=== PATIENT | female | born 1960 | race African-American/Black ===

== ENCOUNTER 2020-08-12 13:40 | Inpatient (IN) | payer OTHER ==
[2020-08-12 15:02] VITALS: BMI 21.9
[2020-08-12] MEDS ORDERED: METHOCARBAMOL 500 MG TABLET PO PRN (15:03)
[2020-08-12] MEDS ORDERED: ONDANSETRON *ODT* 4 MG TABLET SL PRN (15:03)
[2020-08-12] MEDS ORDERED: IBUPROFEN 400 MG TABLET (FP) PO PRN (15:03)
[2020-08-12] MEDS ORDERED: cloNIDine HCL 0.1 MG TABLET PO PRN (15:03)
[2020-08-12] MEDS ORDERED: methaDONE HCL 10 MG TABLET (FOR DETOX USE ONLY) PO ONE (15:03)
[2020-08-12] MEDS ORDERED: MENTHOL/PHENOL 1 EACH UD MM PRN (15:03)
[2020-08-12] MEDS ORDERED: MAGNESIUM HYDROX 2400MG/30ML ORAL SUSPENSION 30 ML CUP PO PRN (15:03)
[2020-08-12] MEDS ORDERED: NICOTINE POLACRILEX 2 MG GUM BUC PRN (15:03)
[2020-08-12] MEDS ORDERED: MAGNESIUM CITRATE 300 ML BOTTLE PO PRN (15:03)
[2020-08-12] MEDS ORDERED: ACETAMINOPHEN 325 MG TABLET (FP) PO PRN (15:03)
[2020-08-12] MEDS: hydrOXYzine PAMOATE 25 MG CAPSULE (FP) PO SCH ×2 (17:52→22:27)
[2020-08-12] MEDS: metFORMIN HCL 500 MG TABLET (FP) PO SCH (17:52)
[2020-08-12] MEDS: NICOTINE 21 MG/24 HOURS TOPICAL PATCH TD SCH (17:56)
[2020-08-12] MEDS: PRENATAL VITAMINS W/ FOLIC ACID TABLET (FP) PO SCH (17:56)
[2020-08-12] MEDS: THIAMINE HCL 100 MG TABLET (FP) PO SCH (22:26)
[2020-08-12] MEDS: ATORVASTATIN CA 20 MG TABLET (FP) PO SCH (22:26)
[2020-08-12] MEDS: MELATONIN 5 MG TABLETS PO SCH (22:26)
[2020-08-13] MEDS: hydrOXYzine PAMOATE 25 MG CAPSULE (FP) PO SCH ×5 (06:13→22:32)
[2020-08-13] MEDS: metFORMIN HCL 500 MG TABLET (FP) PO SCH ×2 (06:13→17:56)
[2020-08-13] MEDS ORDERED: methaDONE HCL 10 MG TABLET (FOR DETOX USE ONLY) ONE (09:30)
[2020-08-13] MEDS: amLODIPine BESYLATE 10 MG TABLET (FP) PO SCH (10:26)
[2020-08-13] MEDS: NICOTINE 21 MG/24 HOURS TOPICAL PATCH TD SCH (10:26)
[2020-08-13] MEDS: LISINOPRIL 10 MG TABLET PO SCH (10:27)
[2020-08-13] MEDS: PRENATAL VITAMINS W/ FOLIC ACID TABLET (FP) PO SCH (10:27)
[2020-08-13 13:14] LABS: BLOOD UREA NITROGEN 10.1 mg/dL (7-18); CALCIUM 8.9 mg/dL (8.5-10.1); HEMATOCRIT 32.6 % (32.4-45.2); HEMOGLOBIN 10.6 GM/dL (10.7-15.3); MCHC 32.4 g/dl (32.0-36.0); MEAN CELL VOLUME 83.3 fl (80-96); MEAN PLT VOLUME 10.1 fl (7.5-11.1); PLATELET COUNT 146 10^3/uL (134-434); RBC 3.91 M/mm3 (3.60-5.2); RDW 13.1 % (11.6-15.6); WHITE BLOOD COUNT 4.8 K/mm3 (4.0-10.0)
[2020-08-13 13:15] LABS: ALBUMIN 3.3 g/dl (3.4-5.0)
[2020-08-13 13:18] LABS: CREATININE 0.6 mg/dL (0.55-1.3)
[2020-08-13 13:19] LABS: BILIRUBIN,TOTAL 0.5 mg/dL (0.2-1)
[2020-08-13 13:20] LABS: TOT PROT 6.5 g/dl (6.4-8.2)
[2020-08-13] MEDS: MELATONIN 5 MG TABLETS PO SCH (22:32)
[2020-08-13] MEDS: ATORVASTATIN CA 20 MG TABLET (FP) PO SCH (22:32)
[2020-08-13] MEDS: THIAMINE HCL 100 MG TABLET (FP) PO SCH (22:32)
[2020-08-14] MEDS: metFORMIN HCL 500 MG TABLET (FP) PO SCH ×2 (06:29→16:30)
[2020-08-14] MEDS: hydrOXYzine PAMOATE 25 MG CAPSULE (FP) PO SCH ×5 (06:29→22:31)
[2020-08-14] MEDS ORDERED: methaDONE HCL 10 MG TABLET (FOR DETOX USE ONLY) PO ONE (10:00)
[2020-08-14] MEDS: LISINOPRIL 10 MG TABLET PO SCH (10:43)
[2020-08-14] MEDS: amLODIPine BESYLATE 10 MG TABLET (FP) PO SCH (10:43)
[2020-08-14] MEDS: PRENATAL VITAMINS W/ FOLIC ACID TABLET (FP) PO SCH (10:43)
[2020-08-14] MEDS: NICOTINE 21 MG/24 HOURS TOPICAL PATCH TD SCH (10:47)
[2020-08-14] MEDS: ATORVASTATIN CA 20 MG TABLET (FP) PO SCH (22:31)
[2020-08-14] MEDS: MELATONIN 5 MG TABLETS PO SCH (22:32)
[2020-08-14] MEDS: THIAMINE HCL 100 MG TABLET (FP) PO SCH (22:32)
[2020-08-15] MEDS: hydrOXYzine PAMOATE 25 MG CAPSULE (FP) PO SCH ×5 (06:17→22:39)
[2020-08-15] MEDS: metFORMIN HCL 500 MG TABLET (FP) PO SCH ×2 (06:17→17:43)
[2020-08-15] MEDS ORDERED: methaDONE HCL 10 MG TABLET (FOR DETOX USE ONLY) ONE (09:32)
[2020-08-15] MEDS: PRENATAL VITAMINS W/ FOLIC ACID TABLET (FP) PO SCH (10:37)
[2020-08-15] MEDS: NICOTINE 21 MG/24 HOURS TOPICAL PATCH TD SCH (10:37)
[2020-08-15] MEDS: amLODIPine BESYLATE 10 MG TABLET (FP) PO SCH (10:38)
[2020-08-15] MEDS: LISINOPRIL 10 MG TABLET PO SCH (10:38)
[2020-08-15] MEDS ORDERED: INSULIN (NOVOLOG) ASPART 100 UNITS/ML 10ML VIAL ONE (17:23)
[2020-08-15] MEDS: INSULIN SLIDING SCALE (NOVOLOG) 1 VIAL SQ SCH (17:43)
[2020-08-15] MEDS: MELATONIN 5 MG TABLETS PO SCH (22:39)
[2020-08-15] MEDS: THIAMINE HCL 100 MG TABLET (FP) PO SCH (22:39)
[2020-08-15] MEDS: ATORVASTATIN CA 20 MG TABLET (FP) PO SCH (22:39)
[2020-08-16] MEDS: metFORMIN HCL 500 MG TABLET (FP) PO SCH ×2 (06:00→17:43)
[2020-08-16] MEDS: hydrOXYzine PAMOATE 25 MG CAPSULE (FP) PO SCH ×5 (06:00→22:45)
[2020-08-16] MEDS: INSULIN SLIDING SCALE (NOVOLOG) 1 VIAL SQ SCH ×2 (06:01→18:24)
[2020-08-16] MEDS ORDERED: methaDONE HCL 10 MG TABLET (FOR DETOX USE ONLY) PO ONE (10:00)
[2020-08-16] MEDS: amLODIPine BESYLATE 10 MG TABLET (FP) PO SCH (10:17)
[2020-08-16] MEDS: PRENATAL VITAMINS W/ FOLIC ACID TABLET (FP) PO SCH (10:17)
[2020-08-16] MEDS: LISINOPRIL 10 MG TABLET PO SCH (10:17)
[2020-08-16] MEDS: NICOTINE 21 MG/24 HOURS TOPICAL PATCH TD SCH (10:18)
[2020-08-16] MEDS: ATORVASTATIN CA 20 MG TABLET (FP) PO SCH (22:45)
[2020-08-16] MEDS: MELATONIN 5 MG TABLETS PO SCH (22:45)
[2020-08-16] MEDS: THIAMINE HCL 100 MG TABLET (FP) PO SCH (22:45)
[2020-08-17] MEDS: hydrOXYzine PAMOATE 25 MG CAPSULE (FP) PO SCH ×5 (06:28→21:27)
[2020-08-17] MEDS: metFORMIN HCL 500 MG TABLET (FP) PO SCH ×2 (06:28→16:57)
[2020-08-17] MEDS: INSULIN SLIDING SCALE (NOVOLOG) 1 VIAL SQ SCH ×2 (08:09→16:57)
[2020-08-17] MEDS: PRENATAL VITAMINS W/ FOLIC ACID TABLET (FP) PO SCH (10:20)
[2020-08-17] MEDS: amLODIPine BESYLATE 10 MG TABLET (FP) PO SCH (10:21)
[2020-08-17] MEDS: NICOTINE 21 MG/24 HOURS TOPICAL PATCH TD SCH (10:21)
[2020-08-17] MEDS: LISINOPRIL 10 MG TABLET PO SCH (10:21)
[2020-08-17] MEDS ORDERED: INSULIN (NOVOLOG) ASPART 100 UNITS/ML 10ML VIAL ONE (16:56)
[2020-08-17] MEDS: ATORVASTATIN CA 20 MG TABLET (FP) PO SCH (21:26)
[2020-08-17] MEDS: THIAMINE HCL 100 MG TABLET (FP) PO SCH (21:26)
[2020-08-17] MEDS: MELATONIN 5 MG TABLETS PO SCH (21:27)
[2020-08-18] MEDS: hydrOXYzine PAMOATE 25 MG CAPSULE (FP) PO SCH ×3 (06:43→14:09)
[2020-08-18] MEDS: metFORMIN HCL 500 MG TABLET (FP) PO SCH ×2 (06:43→17:09)
[2020-08-18] MEDS: INSULIN SLIDING SCALE (NOVOLOG) 1 VIAL SQ SCH ×2 (06:43→17:09)
[2020-08-18] MEDS: LISINOPRIL 10 MG TABLET PO SCH (10:05)
[2020-08-18] MEDS: amLODIPine BESYLATE 10 MG TABLET (FP) PO SCH (10:05)
[2020-08-18] MEDS: PRENATAL VITAMINS W/ FOLIC ACID TABLET (FP) PO SCH (10:05)
[2020-08-18] MEDS: NICOTINE 21 MG/24 HOURS TOPICAL PATCH TD SCH (10:05)
[2020-08-18] MEDS: THIAMINE HCL 100 MG TABLET (FP) PO SCH (22:10)
[2020-08-18] MEDS: MELATONIN 5 MG TABLETS PO SCH (22:10)
[2020-08-18] MEDS: ATORVASTATIN CA 20 MG TABLET (FP) PO SCH (22:10)
[2020-08-19] MEDS: metFORMIN HCL 500 MG TABLET (FP) PO SCH ×2 (06:20→16:46)
[2020-08-19] MEDS ORDERED: INSULIN (NOVOLOG) ASPART 100 UNITS/ML 10ML VIAL ONE (07:35)
[2020-08-19] MEDS: INSULIN SLIDING SCALE (NOVOLOG) 1 VIAL SQ SCH ×2 (07:40→16:46)
[2020-08-19] MEDS ORDERED: valACYclovir HCL 500 MG TABLET (FP) PO ONE (10:55)
[2020-08-19] MEDS: PRENATAL VITAMINS W/ FOLIC ACID TABLET (FP) PO SCH (11:05)
[2020-08-19] MEDS: NICOTINE 21 MG/24 HOURS TOPICAL PATCH TD SCH (11:05)
[2020-08-19] MEDS: amLODIPine BESYLATE 10 MG TABLET (FP) PO SCH (11:05)
[2020-08-19] MEDS: LISINOPRIL 10 MG TABLET PO SCH (11:05)
[2020-08-19] MEDS: ATORVASTATIN CA 20 MG TABLET (FP) PO SCH (21:17)
[2020-08-19] MEDS: THIAMINE HCL 100 MG TABLET (FP) PO SCH (21:17)
[2020-08-19] MEDS: MELATONIN 5 MG TABLETS PO SCH (21:17)
[2020-08-19] MEDS: valACYclovir HCL 500 MG TABLET (FP) PO SCH (21:18)
[2020-08-19] MEDS: hydrOXYzine PAMOATE 25 MG CAPSULE (FP) PO PRN (21:18)
[2020-08-19] MEDS: METHOCARBAMOL 500 MG TABLET PO PRN (21:18)
[2020-08-20] MEDS: metFORMIN HCL 500 MG TABLET (FP) PO SCH ×2 (06:36→16:54)
[2020-08-20] MEDS: INSULIN SLIDING SCALE (NOVOLOG) 1 VIAL SQ SCH ×2 (08:09→16:52)
[2020-08-20] MEDS: NICOTINE 21 MG/24 HOURS TOPICAL PATCH TD SCH (10:53)
[2020-08-20] MEDS: LISINOPRIL 10 MG TABLET PO SCH (10:54)
[2020-08-20] MEDS: amLODIPine BESYLATE 10 MG TABLET (FP) PO SCH (10:54)
[2020-08-20] MEDS: PRENATAL VITAMINS W/ FOLIC ACID TABLET (FP) PO SCH (10:54)
[2020-08-20] MEDS: valACYclovir HCL 500 MG TABLET (FP) PO SCH ×2 (10:54→21:23)
[2020-08-20] MEDS: hydrOXYzine PAMOATE 25 MG CAPSULE (FP) PO PRN (21:23)
[2020-08-20] MEDS: MELATONIN 5 MG TABLETS PO SCH (21:23)
[2020-08-20] MEDS: ATORVASTATIN CA 20 MG TABLET (FP) PO SCH (21:23)
[2020-08-20] MEDS: THIAMINE HCL 100 MG TABLET (FP) PO SCH (21:23)
[2020-08-21] MEDS: metFORMIN HCL 500 MG TABLET (FP) PO SCH ×2 (06:11→16:31)
[2020-08-21] MEDS ORDERED: INSULIN (NOVOLOG) ASPART 100 UNITS/ML 10ML VIAL ONE (06:13)
[2020-08-21] MEDS: INSULIN SLIDING SCALE (NOVOLOG) 1 VIAL SQ SCH ×2 (06:13→16:30)
[2020-08-21] MEDS: PRENATAL VITAMINS W/ FOLIC ACID TABLET (FP) PO SCH (10:42)
[2020-08-21] MEDS: valACYclovir HCL 500 MG TABLET (FP) PO SCH ×2 (10:42→21:57)
[2020-08-21] MEDS: NICOTINE 21 MG/24 HOURS TOPICAL PATCH TD SCH (10:43)
[2020-08-21] MEDS: LISINOPRIL 10 MG TABLET PO SCH (10:43)
[2020-08-21] MEDS: amLODIPine BESYLATE 10 MG TABLET (FP) PO SCH (10:43)
[2020-08-21] MEDS: MELATONIN 5 MG TABLETS PO SCH (21:57)
[2020-08-21] MEDS: THIAMINE HCL 100 MG TABLET (FP) PO SCH (21:57)
[2020-08-21] MEDS: ATORVASTATIN CA 20 MG TABLET (FP) PO SCH (21:57)
[2020-08-21] MEDS: hydrOXYzine PAMOATE 25 MG CAPSULE (FP) PO PRN (21:58)
[2020-08-22] MEDS: ACETAMINOPHEN 325 MG TABLET (FP) PO PRN (05:30)
[2020-08-22] MEDS: metFORMIN HCL 500 MG TABLET (FP) PO SCH ×2 (06:59→16:28)
[2020-08-22] MEDS: INSULIN SLIDING SCALE (NOVOLOG) 1 VIAL SQ SCH ×2 (06:59→16:30)
[2020-08-22] MEDS: MAG HYDROX/AL HYDROX/SIMETH 30 ML UNIT-DOSE CUP PO PRN (07:01)
[2020-08-22] MEDS: valACYclovir HCL 500 MG TABLET (FP) PO SCH ×2 (10:31→21:47)
[2020-08-22] MEDS: PRENATAL VITAMINS W/ FOLIC ACID TABLET (FP) PO SCH (10:31)
[2020-08-22] MEDS: amLODIPine BESYLATE 10 MG TABLET (FP) PO SCH (10:31)
[2020-08-22] MEDS: NICOTINE 21 MG/24 HOURS TOPICAL PATCH TD SCH (10:32)
[2020-08-22] MEDS: LISINOPRIL 10 MG TABLET PO SCH (10:32)
[2020-08-22] MEDS ORDERED: PT OWN MED DRAWER 7, Y5N ONE (10:52)
[2020-08-22] MEDS: THIAMINE HCL 100 MG TABLET (FP) PO SCH (21:47)
[2020-08-22] MEDS: ATORVASTATIN CA 20 MG TABLET (FP) PO SCH (21:47)
[2020-08-22] MEDS: hydrOXYzine PAMOATE 25 MG CAPSULE (FP) PO PRN (21:48)
[2020-08-22] MEDS: MELATONIN 5 MG TABLETS PO SCH (21:48)
[2020-08-23] MEDS: INSULIN SLIDING SCALE (NOVOLOG) 1 VIAL SQ SCH ×2 (06:34→16:41)
[2020-08-23] MEDS: metFORMIN HCL 500 MG TABLET (FP) PO SCH ×2 (06:35→16:38)
[2020-08-23] MEDS: LISINOPRIL 10 MG TABLET PO SCH (10:56)
[2020-08-23] MEDS: PRENATAL VITAMINS W/ FOLIC ACID TABLET (FP) PO SCH (10:56)
[2020-08-23] MEDS: amLODIPine BESYLATE 10 MG TABLET (FP) PO SCH (10:56)
[2020-08-23] MEDS: valACYclovir HCL 500 MG TABLET (FP) PO SCH ×2 (10:56→22:04)
[2020-08-23] MEDS: NICOTINE 21 MG/24 HOURS TOPICAL PATCH TD SCH (10:57)
[2020-08-23] MEDS ORDERED: PT OWN MED DRAWER 7, Y5N ONE (11:19)
[2020-08-23] MEDS: glipiZIDE 5 MG TABLET (FP) PO SCH (16:39)
[2020-08-23] MEDS: BICTEGRAV/EMTRICIT/TENOFOV (BIKTARVY) 50-200-25 MG TABLET PO SCH (16:39)
[2020-08-23] MEDS: ATORVASTATIN CA 20 MG TABLET (FP) PO SCH (22:04)
[2020-08-23] MEDS: MELATONIN 5 MG TABLETS PO SCH (22:04)
[2020-08-23] MEDS: THIAMINE HCL 100 MG TABLET (FP) PO SCH (22:04)
[2020-08-23] MEDS: hydrOXYzine PAMOATE 25 MG CAPSULE (FP) PO PRN (22:05)
[2020-08-24] MEDS: metFORMIN HCL 500 MG TABLET (FP) PO SCH ×2 (07:27→16:24)
[2020-08-24] MEDS: glipiZIDE 5 MG TABLET (FP) PO SCH ×2 (07:27→16:25)
[2020-08-24] MEDS: sitaGLIPtin PHOSPHATE 50 MG TABLET PO SCH (07:27)
[2020-08-24] MEDS: INSULIN SLIDING SCALE (NOVOLOG) 1 VIAL SQ SCH ×2 (07:28→16:31)
[2020-08-24] MEDS: amLODIPine BESYLATE 10 MG TABLET (FP) PO SCH ×2 (12:25→16:25)
[2020-08-24] MEDS: NICOTINE 21 MG/24 HOURS TOPICAL PATCH TD SCH (12:25)
[2020-08-24] MEDS: BICTEGRAV/EMTRICIT/TENOFOV (BIKTARVY) 50-200-25 MG TABLET PO SCH ×2 (12:25→16:28)
[2020-08-24] MEDS: LISINOPRIL 10 MG TABLET PO SCH ×2 (12:26→16:26)
[2020-08-24] MEDS: PRENATAL VITAMINS W/ FOLIC ACID TABLET (FP) PO SCH (12:26)
[2020-08-24] MEDS: valACYclovir HCL 500 MG TABLET (FP) PO SCH ×2 (12:26→21:08)
[2020-08-24] MEDS: PANTOPRAZOLE 20 MG TABLET PO SCH (16:24)
[2020-08-24] MEDS ORDERED: INSULIN (NOVOLOG) ASPART 100 UNITS/ML 10ML VIAL ONE (16:31)
[2020-08-24] MEDS: METHOCARBAMOL 500 MG TABLET PO PRN (21:08)
[2020-08-24] MEDS: ATORVASTATIN CA 20 MG TABLET (FP) PO SCH (21:08)
[2020-08-24] MEDS: THIAMINE HCL 100 MG TABLET (FP) PO SCH (21:09)
[2020-08-24] MEDS: MELATONIN 5 MG TABLETS PO SCH (21:09)
[2020-08-24] MEDS: hydrOXYzine PAMOATE 25 MG CAPSULE (FP) PO PRN (21:10)
[2020-08-24] MEDS: MAG HYDROX/AL HYDROX/SIMETH 30 ML UNIT-DOSE CUP PO PRN (21:11)
[2020-08-24] MEDS: ACETAMINOPHEN 325 MG TABLET (FP) PO PRN (23:54)
[2020-08-25] MEDS ORDERED: PT OWN MED DRAWER 7, Y5N ONE ×3 (05:03→16:44)
[2020-08-25] MEDS: glipiZIDE 5 MG TABLET (FP) PO SCH ×2 (06:17→16:50)
[2020-08-25] MEDS: metFORMIN HCL 500 MG TABLET (FP) PO SCH ×2 (06:17→16:49)
[2020-08-25] MEDS: PANTOPRAZOLE 20 MG TABLET PO SCH ×2 (06:17→16:50)
[2020-08-25] MEDS: sitaGLIPtin PHOSPHATE 50 MG TABLET PO SCH (06:17)
[2020-08-25] MEDS: INSULIN SLIDING SCALE (NOVOLOG) 1 VIAL SQ SCH ×2 (06:19→16:50)
[2020-08-25] MEDS: BICTEGRAV/EMTRICIT/TENOFOV (BIKTARVY) 50-200-25 MG TABLET PO SCH (09:05)
[2020-08-25] MEDS: PRENATAL VITAMINS W/ FOLIC ACID TABLET (FP) PO SCH (09:38)
[2020-08-25] MEDS: valACYclovir HCL 500 MG TABLET (FP) PO SCH ×2 (09:39→21:09)
[2020-08-25] MEDS: amLODIPine BESYLATE 10 MG TABLET (FP) PO SCH (09:39)
[2020-08-25] MEDS: LISINOPRIL 10 MG TABLET PO SCH (09:39)
[2020-08-25] MEDS: NICOTINE 21 MG/24 HOURS TOPICAL PATCH TD SCH (09:40)
[2020-08-25] MEDS: METHOCARBAMOL 500 MG TABLET PO PRN (21:09)
[2020-08-25] MEDS: THIAMINE HCL 100 MG TABLET (FP) PO SCH (21:09)
[2020-08-25] MEDS: ATORVASTATIN CA 20 MG TABLET (FP) PO SCH (21:09)
[2020-08-25] MEDS: hydrOXYzine PAMOATE 25 MG CAPSULE (FP) PO PRN (21:09)
[2020-08-25] MEDS: MELATONIN 5 MG TABLETS PO SCH (21:09)
[2020-08-26] MEDS: PANTOPRAZOLE 20 MG TABLET PO SCH ×2 (06:15→16:38)
[2020-08-26] MEDS: metFORMIN HCL 500 MG TABLET (FP) PO SCH ×2 (06:15→16:38)
[2020-08-26] MEDS: INSULIN SLIDING SCALE (NOVOLOG) 1 VIAL SQ SCH ×2 (06:16→16:56)
[2020-08-26] MEDS: sitaGLIPtin PHOSPHATE 50 MG TABLET PO SCH (06:17)
[2020-08-26] MEDS: glipiZIDE 5 MG TABLET (FP) PO SCH ×2 (06:26→16:38)
[2020-08-26] MEDS: amLODIPine BESYLATE 10 MG TABLET (FP) PO SCH (10:37)
[2020-08-26] MEDS: LISINOPRIL 10 MG TABLET PO SCH (10:37)
[2020-08-26] MEDS: PRENATAL VITAMINS W/ FOLIC ACID TABLET (FP) PO SCH (10:38)
[2020-08-26] MEDS: NICOTINE 21 MG/24 HOURS TOPICAL PATCH TD SCH (10:38)
[2020-08-26] MEDS: valACYclovir HCL 500 MG TABLET (FP) PO SCH (10:38)
[2020-08-26] MEDS: BICTEGRAV/EMTRICIT/TENOFOV (BIKTARVY) 50-200-25 MG TABLET PO SCH (11:57)
[2020-08-26] MEDS ORDERED: PT OWN MED DRAWER 7, Y5N ONE (16:37)
[2020-08-26] MEDS: ATORVASTATIN CA 20 MG TABLET (FP) PO SCH (21:16)
[2020-08-26] MEDS: hydrOXYzine PAMOATE 25 MG CAPSULE (FP) PO PRN (21:16)
[2020-08-26] MEDS: THIAMINE HCL 100 MG TABLET (FP) PO SCH (21:16)
[2020-08-26] MEDS: MELATONIN 5 MG TABLETS PO SCH (21:17)
[2020-08-27] MEDS: PANTOPRAZOLE 20 MG TABLET PO SCH ×2 (06:12→16:54)
[2020-08-27] MEDS: glipiZIDE 5 MG TABLET (FP) PO SCH ×2 (06:12→16:54)
[2020-08-27] MEDS: metFORMIN HCL 500 MG TABLET (FP) PO SCH ×2 (06:12→16:54)
[2020-08-27] MEDS: INSULIN SLIDING SCALE (NOVOLOG) 1 VIAL SQ SCH ×2 (06:14→16:54)
[2020-08-27] MEDS ORDERED: INSULIN (NOVOLOG) ASPART 100 UNITS/ML 10ML VIAL ONE ×2 (06:15→16:53)
[2020-08-27] MEDS: sitaGLIPtin PHOSPHATE 50 MG TABLET PO SCH (06:38)
[2020-08-27] MEDS: BICTEGRAV/EMTRICIT/TENOFOV (BIKTARVY) 50-200-25 MG TABLET PO SCH (07:08)
[2020-08-27] MEDS: PRENATAL VITAMINS W/ FOLIC ACID TABLET (FP) PO SCH (10:27)
[2020-08-27] MEDS: NICOTINE 21 MG/24 HOURS TOPICAL PATCH TD SCH (10:27)
[2020-08-27] MEDS: LISINOPRIL 10 MG TABLET PO SCH (10:28)
[2020-08-27] MEDS: amLODIPine BESYLATE 10 MG TABLET (FP) PO SCH (10:28)
[2020-08-27] MEDS: BISMUTH SUBSALICYLATE 524 MG/30 ML PO PRN (12:42)
[2020-08-27] MEDS: ACETAMINOPHEN 325 MG TABLET (FP) PO PRN (14:38)
[2020-08-27] MEDS ORDERED: PT OWN MED DRAWER 7, Y5N ONE (16:53)
[2020-08-27] MEDS: THIAMINE HCL 100 MG TABLET (FP) PO SCH (21:32)
[2020-08-27] MEDS: MELATONIN 5 MG TABLETS PO SCH (21:32)
[2020-08-27] MEDS: ATORVASTATIN CA 20 MG TABLET (FP) PO SCH (21:32)
[2020-08-27] MEDS: hydrOXYzine PAMOATE 25 MG CAPSULE (FP) PO PRN (21:33)
[2020-08-28] MEDS ORDERED: PT OWN MED DRAWER 7, Y5N ONE ×3 (03:30→21:57)
[2020-08-28] MEDS ORDERED: INSULIN (NOVOLOG) ASPART 100 UNITS/ML 10ML VIAL ONE ×3 (03:30→16:47)
[2020-08-28] MEDS: INSULIN SLIDING SCALE (NOVOLOG) 1 VIAL SQ SCH ×2 (06:17→16:50)
[2020-08-28] MEDS: glipiZIDE 5 MG TABLET (FP) PO SCH ×2 (06:18→16:50)
[2020-08-28] MEDS: metFORMIN HCL 500 MG TABLET (FP) PO SCH ×2 (06:18→16:50)
[2020-08-28] MEDS: sitaGLIPtin PHOSPHATE 50 MG TABLET PO SCH (06:18)
[2020-08-28] MEDS: PANTOPRAZOLE 20 MG TABLET PO SCH ×2 (06:18→16:50)
[2020-08-28] MEDS: BISMUTH SUBSALICYLATE 524 MG/30 ML PO PRN (06:38)
[2020-08-28] MEDS: PRENATAL VITAMINS W/ FOLIC ACID TABLET (FP) PO SCH (09:54)
[2020-08-28] MEDS: amLODIPine BESYLATE 10 MG TABLET (FP) PO SCH (09:55)
[2020-08-28] MEDS: NICOTINE 21 MG/24 HOURS TOPICAL PATCH TD SCH (09:55)
[2020-08-28] MEDS: LISINOPRIL 10 MG TABLET PO SCH (09:55)
[2020-08-28] MEDS: BICTEGRAV/EMTRICIT/TENOFOV (BIKTARVY) 50-200-25 MG TABLET PO SCH (09:57)
[2020-08-28] MEDS: ATORVASTATIN CA 20 MG TABLET (FP) PO SCH (21:04)
[2020-08-28] MEDS: METHOCARBAMOL 500 MG TABLET PO PRN (21:04)
[2020-08-28] MEDS: hydrOXYzine PAMOATE 25 MG CAPSULE (FP) PO PRN (21:04)
[2020-08-28] MEDS: THIAMINE HCL 100 MG TABLET (FP) PO SCH (21:04)
[2020-08-28] MEDS: MELATONIN 5 MG TABLETS PO SCH (21:04)
[2020-08-29] MEDS ORDERED: INSULIN (NOVOLOG) ASPART 100 UNITS/ML 10ML VIAL ONE ×2 (02:51→16:52)
[2020-08-29] MEDS ORDERED: PT OWN MED DRAWER 7, Y5N ONE ×3 (02:53→16:56)
[2020-08-29] MEDS: INSULIN SLIDING SCALE (NOVOLOG) 1 VIAL SQ SCH ×2 (06:19→16:54)
[2020-08-29] MEDS: metFORMIN HCL 500 MG TABLET (FP) PO SCH ×2 (06:20→16:55)
[2020-08-29] MEDS: sitaGLIPtin PHOSPHATE 50 MG TABLET PO SCH (06:20)
[2020-08-29] MEDS: PANTOPRAZOLE 20 MG TABLET PO SCH ×2 (06:20→16:55)
[2020-08-29] MEDS: glipiZIDE 5 MG TABLET (FP) PO SCH ×2 (06:20→16:56)
[2020-08-29 07:28] VITALS: TEMP 95.5
[2020-08-29] MEDS: BICTEGRAV/EMTRICIT/TENOFOV (BIKTARVY) 50-200-25 MG TABLET PO SCH (07:42)
[2020-08-29 09:10] VITALS: PULSE 105
[2020-08-29] MEDS: NICOTINE 21 MG/24 HOURS TOPICAL PATCH TD SCH (09:51)
[2020-08-29] MEDS: amLODIPine BESYLATE 10 MG TABLET (FP) PO SCH (09:52)
[2020-08-29] MEDS: LISINOPRIL 10 MG TABLET PO SCH (09:52)
[2020-08-29] MEDS: hydrOXYzine PAMOATE 25 MG CAPSULE (FP) PO PRN ×2 (09:52→21:06)
[2020-08-29] MEDS: PRENATAL VITAMINS W/ FOLIC ACID TABLET (FP) PO SCH (09:52)
[2020-08-29] MEDS: MAG HYDROX/AL HYDROX/SIMETH 30 ML UNIT-DOSE CUP PO PRN (17:54)
[2020-08-29] MEDS: ATORVASTATIN CA 20 MG TABLET (FP) PO SCH (21:06)
[2020-08-29] MEDS: METHOCARBAMOL 500 MG TABLET PO PRN (21:06)
[2020-08-29] MEDS: MELATONIN 5 MG TABLETS PO SCH (21:06)
[2020-08-29] MEDS: THIAMINE HCL 100 MG TABLET (FP) PO SCH (21:06)
[2020-08-30] MEDS ORDERED: PT OWN MED DRAWER 7, Y5N ONE (03:44)
[2020-08-30] MEDS: glipiZIDE 5 MG TABLET (FP) PO SCH (06:07)
[2020-08-30] MEDS: sitaGLIPtin PHOSPHATE 50 MG TABLET PO SCH (06:07)
[2020-08-30] MEDS: PANTOPRAZOLE 20 MG TABLET PO SCH (06:07)
[2020-08-30] MEDS: metFORMIN HCL 500 MG TABLET (FP) PO SCH (06:07)
[2020-08-30] MEDS: INSULIN SLIDING SCALE (NOVOLOG) 1 VIAL SQ SCH (06:08)
[2020-08-30] MEDS: MAG HYDROX/AL HYDROX/SIMETH 30 ML UNIT-DOSE CUP PO PRN (06:20)
[2020-08-30 07:32] VITALS: BP 119/78
[2020-08-30] MEDS: BICTEGRAV/EMTRICIT/TENOFOV (BIKTARVY) 50-200-25 MG TABLET PO SCH (09:00)
[2020-08-30] MEDS: amLODIPine BESYLATE 10 MG TABLET (FP) PO SCH (09:33)
[2020-08-30] MEDS: NICOTINE 21 MG/24 HOURS TOPICAL PATCH TD SCH (09:33)
[2020-08-30] MEDS: LISINOPRIL 10 MG TABLET PO SCH (09:33)
[2020-08-30] MEDS: PRENATAL VITAMINS W/ FOLIC ACID TABLET (FP) PO SCH (09:33)
== END 2020-08-30 10:10 | disposition home or self-care (01) | DRG 895 ==
LOC: YASAS 13:40 → Y6N 16:35 → Y5N 08-17 13:45
PROVIDERS: ADMIT Allergy & Immunology; ATTEND Allergy & Immunology
PROC: HZ2ZZZZ Detoxification Services for Substance Abuse Treatment (ICD-10-PCS; 2020-08-12)
PROC: HZ42ZZZ Group Counseling for Substance Abuse Treatment, Cognitive-Behavioral (ICD-10-PCS; principal; 2020-08-17)
DX: F11.20 Opioid dependence, uncomplicated (principal); F14.20 Cocaine dependence, uncomplicated; F19.282 Other psychoactive substance dependence with psychoactive substance-induced sleep disorder; F17.210 Nicotine dependence, cigarettes, uncomplicated; F19.24 Other psychoactive substance dependence with psychoactive substance-induced mood disorder; F41.9 Anxiety disorder, unspecified; F32.9 Major depressive disorder, single episode, unspecified; Z21 Asymptomatic human immunodeficiency virus [HIV] infection status; I10 Essential (primary) hypertension; E11.9 Type 2 diabetes mellitus without complications; Z79.84 Long term (current) use of oral hypoglycemic drugs; E78.5 Hyperlipidemia, unspecified; A53.0 Latent syphilis, unspecified as early or late; A60.00 Herpesviral infection of urogenital system, unspecified; Z87.42 Personal history of other diseases of the female genital tract; R10.9 Unspecified abdominal pain; Z86.19 Personal history of other infectious and parasitic diseases
CPT/HCPCS: 36415; 80053; 81003; 82962; 83690; 83735; 85025; 85027; 86593; 86780; 87086; 93005; 93010; 96374; 96375; 99284-25; C9803; J0131; U0003; U0005

== ENCOUNTER 2020-08-24 02:16 | Emergency (ER) | payer OTHER ==
[2020-08-24 02:29] VITALS: TEMP 98.7; BMI 21.9
[2020-08-24] MEDS ORDERED: LACTATED RINGERS SOLUTION 1000 ML INFUS.BAG IV ONE (02:54)
[2020-08-24] MEDS ORDERED: ACETAMINOPHEN 1000 MG/100 ML VIAL (NON FORMULARY) IVPB ONE (02:54)
[2020-08-24] MEDS ORDERED: METOCLOPRAMIDE HCL INJECTION 10 MG/2 ML VIAL IVPB ONE (02:54)
[2020-08-24] MEDS ORDERED: ACETAMINOPHEN INJECTION 100 ML IVPB ONE (03:02)
[2020-08-24] MEDS ORDERED: METOCLOPRAMIDE HCL INJECTION 10 MG/2 ML VIAL ONE (03:02)
[2020-08-24 03:50] LABS: HEMATOCRIT 37.8 % (32.4-45.2); HEMOGLOBIN 12.5 GM/dL (10.7-15.3); LYMPH % 26.9 % (8-40); MCH 27.3 pg (25.7-33.7); MCHC 33.2 g/dl (32.0-36.0); MEAN CELL VOLUME 82.2 fl (80-96); MEAN PLT VOLUME 10.3 fl (7.5-11.1); MONO % 5.3 % (3.8-10.2); NEUT % 64.8 % (42.8-82.8); PLATELET COUNT 128 10^3/uL (134-434); RDW 12.5 % (11.6-15.6); WHITE BLOOD COUNT 6.9 K/mm3 (4.0-10.0)
[2020-08-24 04:19] LABS: BLOOD UREA NITROGEN 20.7 mg/dL (7-18); CALCIUM 9.6 mg/dL (8.5-10.1); MAGNESIUM 1.9 mg/dL (1.8-2.4)
[2020-08-24 04:22] LABS: CREATININE 0.7 mg/dL (0.55-1.3)
[2020-08-24 04:24] LABS: BILIRUBIN,TOTAL 0.5 mg/dL (0.2-1)
[2020-08-24 05:15] LABS: URINE APPEARANCE Clear; URINE BILIRUBIN Negative (NEGATIVE); URINE COLOR Dark yellow; URINE GLUCOSE (UA) Negative (NEGATIVE); URINE KETONE Trace (NEGATIVE); URINE LEUK ESTERASE Negative (NEGATIVE); URINE NITRITE Negative (NEGATIVE); URINE PROTEIN 2+ (NEGATIVE); URINE UROBILINOGEN 0.2 mg/dL (0.2-1.0)
[2020-08-24] MEDS ORDERED: MAG HYDROX/AL HYDROX/SIMETH 30 ML UNIT-DOSE CUP PO ONE (05:26)
[2020-08-24] MEDS ORDERED: SUCRALFATE 1 GM TABLET (FP) PO ONE (05:51)
[2020-08-24] MEDS ORDERED: FAMOTIDINE 20 MG/50 ML IVPB 20 MG/50 ML MG IVPB ONE ×2 (05:51→06:06)
[2020-08-24] MEDS ORDERED: MAG HYDROX/AL HYDROX/SIMETH 30 ML UNIT-DOSE CUP ONE (06:06)
[2020-08-24] MEDS ORDERED: SUCRALFATE 1 GM TABLET (FP) ONE (06:06)
[2020-08-24] MEDS ORDERED: ONDANSETRON 4 MG/2 ML VIAL IVPUSH ONE (09:03)
[2020-08-24] MEDS ORDERED: ONDANSETRON 4 MG/2 ML VIAL ONE (09:19)
[2020-08-24 14:44] VITALS: BP 168/93; PULSE 93
== END 2020-08-24 14:35 | disposition home or self-care (01) ==
LOC: JER 02:16
PROC: 3E0333Z Introduction of Anti-inflammatory into Peripheral Vein, Percutaneous Approach (ICD-10-PCS; principal; 2020-08-24)
PROC: 3E033GC Introduction of Other Therapeutic Substance into Peripheral Vein, Percutaneous Approach (ICD-10-PCS; 2020-08-24)
PROC: 3E033GC Introduction of Other Therapeutic Substance into Peripheral Vein, Percutaneous Approach (ICD-10-PCS; 2020-08-24)
DX: R10.30 Lower abdominal pain, unspecified (principal)
CPT/HCPCS: 36415; 80053; 81003; 83690; 83735; 85025; 87086; 93005; 93010; 96374; 96375; 99284-25; J0131